=== PATIENT | female | born 1965 | race Two or more races ===

== ENCOUNTER 2016-12-04 07:53 | Emergency (ER) | payer OTHER ==
[~2016-12-04] VITALS: Ht 172.7 cm; Wt 145.1 kg
[2016-12-04] MEDS ORDERED: KETOROLAC TROMETH 60MG/2ML VIAL IM ONE (09:45)
[2016-12-04] MEDS ORDERED: ACETAMINOPHEN 325 MG TAB PO ONE (11:15)
[2016-12-04] MEDS ORDERED: SODIUM CHLORIDE 0.9% 1,000 ML IV ONE (11:30)
[2016-12-04] MEDS ORDERED: SODIUM CHL 0.9% IV ONE (12:00)
[2016-12-04] MEDS ORDERED: DESMOPRESSIN IV ONE (12:00)
[2016-12-04] MEDS ORDERED: LEVETIRACETAM INJ 500 MG in SODIUM CHL 0.9% 100 ML IV ONE (12:00)
[2016-12-04 12:18] LABS: Basophils # (auto) 0 uL; Basophils % (auto) 0.2 % (0.0-2.0); Eosinophils # (auto) 0.1 uL; Eosinophils % (auto) 0.5 % (0.0-7.0); Hematocrit 42.7 % (36.0-46.0); Hemoglobin 13.7 g/dL (12.2-16.2); Lymphocytes # (auto) 1.9 uL; Lymphocytes % (auto) 17.4 % (10.0-50.0); Mean Corpuscular Hemoglobin 28.6 pg (28.0-32.0); Mean Corpuscular Hgb Conc. 32.1 g/dL (32.0-36.0); Mean Platelet Volume 7.4 fL (7.4-10.4); Monocytes # (auto) 0.6 uL; Neutrophils # (auto) 8.6 uL; Neutrophils % (auto) 76.9 % (37.0-80.0); Platelet Count (auto) 287 10^3/uL (140-450); Red Cell Distribution Width 12.8 % (11.6-16.0); White Blood Cell 11.2 10^3/uL (4.4-10.8)
[2016-12-04 12:54] LABS: INR 0.92 (0.9-1.15); Partial Thromboplastin Time 22.9 sec (22.64-33.71); Prothrombin Time 9.5 sec (9.37-12.3)
[2016-12-04] MEDS ORDERED: MORPHINE SULFATE 4 MG/ML SYRG IV ONE (13:00)
[2016-12-04] MEDS ORDERED: ONDANSETRON HCL 4 MG/2 ML VIAL IV ONE (13:00)
[2016-12-04 13:14] LABS: Albumin 3.6 g/dL (3.4-5.0); BUN/Creatinine Ratio 21.1; Bilirubin, Total 0.4 mg/dL (0.2-1.0); Calcium 8.4 mg/dL (8.5-10.1); Potassium 4.2 mmol/L (3.5-5.1); Total Protein 7.3 g/dL (6.4-8.2)
[2016-12-04 13:48] VITALS: BP 99/48
== END 2016-12-04 14:36 | disposition short-term general hospital (02) ==
LOC: EDUNIT# 07:53 → ER 07:56
DX: S16.1XXA Strain of muscle, fascia and tendon at neck level, initial encounter (principal); S39.012A Strain of muscle, fascia and tendon of lower back, initial encounter; S06.5X0A Traumatic subdural hemorrhage without loss of consciousness, initial encounter; V49.9XXA Car occupant (driver) (passenger) injured in unspecified traffic accident, initial encounter; Y93.89 Activity, other specified; Y99.8 Other external cause status; Y92.488 Other paved roadways as the place of occurrence of the external cause
CPT/HCPCS: 36415; 70450; 72125; 72131; 80053; 85025; 85610; 85730; 86850; 86900; 86901; 96365; 96368; 96372; 96375; 99291; J1885; J1953; J2270; J2405; J2597; J7030; 36430